=== PATIENT | male | born 1990 | race Caucasian/White ===

== ENCOUNTER 2022-11-10 22:50 | Emergency (ER) | payer OTHER ==
[~2022-11-10] VITALS: Ht 170.2 cm; Wt 65.8 kg
[2022-11-10 22:54] VITALS: BP 122/78
--- NOTE | 2022-11-10 22:54 | NUR ---
Patient BIB by [facility]. C/O pre-book x today. Patient taken to chair A.
--- NOTE | 2022-11-10 23:16 | NUR ---
Dr. Wynn examining patient.
[2022-11-10 23:30] VITALS: BP 122/78
--- NOTE | 2022-11-10 23:30 | NUR ---
Patient D/C to custody.
== END 2022-11-10 23:30 ==
LOC: MED 22:50
DX: S00.83XA Contusion of other part of head, initial encounter (principal); Y04.0XXA Assault by unarmed brawl or fight, initial encounter; Y92.89 Other specified places as the place of occurrence of the external cause; Y93.89 Activity, other specified; Y99.8 Other external cause status
CPT/HCPCS: 99283